=== PATIENT | male | born 1955 | race Caucasian/White ===

== ENCOUNTER 2017-11-29 08:05 | Outpatient (CLI) | payer OTHER ==
--- NOTE | 2017-11-29 15:41 | DEXA Report ---
DEXA SCAN: 11/29/2017 CLINICAL INDICATION: Osteoporosis. TECHNIQUE: Dual energy x-ray absorptiometry (DXA) was performed on a [employer] system. Regions measured are the AP spine, femoral neck, and, if needed, forearm. COMPARISON: None. In accordance with the International Society for Clinical Densitometry (ISCD) guidelines, data from previous exams may be reanalyzed using current recommendations and techniques. This is done to allow a more accurate basis for comparison with the current study. FINDINGS The data for the lumbar spine is as follows: REGION BMD (g/cm/cm) T-SCORE Z-SCORE L1 0.872 -2.4 -1.9 L2 0.910 -2.7 -2.3 L3 0.888 -2.9 -2.5 L4 0.753 -4.1 -3.6 L1-L4 0.851 -3.1 -2.6 NOTE: All evaluable vertebrae are used for classification. The data for the hip is as follows: REGION BMD (g/cm/cm) T-SCORE Z-SCORE Neck 0.929 -1.1 0.0 TOTAL 0.857 -1.7 -1.1 NOTE: The femoral neck or total proximal femur, whichever is lowest, is used for classification. IMPRESSION WHO CLASSIFICATION BASED ON THE INTERNATIONAL REFERENCE STANDARD IS OSTEOPOROSIS. FRACTURE RISK IS HIGH. RECOMMENDATION: Patients with diagnosis of osteoporosis or osteopenia should have regular bone mineral density assessment. For those eligible for Medicare, routine testing is allowed once every 2 years. Testing frequency can be increased for patients who have rapidly progressing disease or for those who are receiving medical therapy to restore bone mass. COMMENT World Health Organization (WHO) definitions for osteoporosis and osteopenia: NORMAL BMD: T-score at 1.0 or higher, fracture risk is low. OSTEOPENIA BMD: T-score between 1.0 and -2.5, fracture risk is increased. OSTEOPOROSIS BMD: T-score at 2.5 or lower, fracture risk high. National Osteoporosis Foundation recommends: 1. Obtain adequate dietary calcium (at least 1200 mg per day) and vitamin D (400 -800 international units per day). 2. Participate, as appropriate, in regular weightbearing and muscle- strengthening exercise. 3. Avoid tobacco use and reduce alcohol and caffeine intake. 4. For more detailed information see the website at www.NOF.org. TD: 11/29/2017 09:41 MTDSophie
== END 2017-11-29 08:06 | disposition home or self-care (01) ==
LOC: DI 08:05
PROVIDERS: ATTEND Internal Medicine
DX: M81.0 Age-related osteoporosis without current pathological fracture (principal)
CPT/HCPCS: 77080

== ENCOUNTER 2018-04-05 10:33 | Outpatient (CLI) | payer OTHER ==
--- NOTE | 2018-04-06 10:40 | XRAY Report ---
Reason: OTH SPECIFIC ARTHROPATHIES, NEC, MULTIPLE SITES Procedure Date: 04/05/2018 Accession Number: [id number] / [id number] Procedure: XR - Hand 3 View BILAT CPT Code: FULL RESULT: EXAMS: 1. RIGHT HAND RADIOGRAPHY 2. LEFT HAND RADIOGRAPHY EXAM DATE: 04/05/2018 10:41 AM. CLINICAL HISTORY: Patient presents with bilateral hand pain, primary to right hand. History of arthritis. COMPARISON: None. TECHNIQUE: 3 views each hand. FINDINGS: Right: Bones: Normal. No fractures or bone lesions. Joints: There is interphalangeal joint space narrowing which is most pronounced in the distal interphalangeal compartments. Soft Tissues: Normal. No soft tissue swelling. Left: Bones: Normal. No fractures or bone lesions. Joints: Interphalangeal joint space narrowing, greater in the distal interphalangeal joints and less severe as compared to the left. Soft Tissues: Normal. No soft tissue swelling. IMPRESSION: Right greater than left osteoarthrosis. RADIA
== END 2018-04-05 10:34 | disposition home or self-care (01) ==
LOC: DI 10:33
PROVIDERS: ATTEND Internal Medicine
DX: M19.042 Primary osteoarthritis, left hand (principal); M19.041 Primary osteoarthritis, right hand

== ENCOUNTER 2018-04-06 10:26 | Outpatient (CLI) | payer OTHER ==
[2018-04-06 11:17] LABS: HGB - HEMOGLOBIN 13.3 g/dL (14.0-18.0); MEAN CORPUSCULAR HEMOGLOBIN 31.6 pg (27.0-31.0); MEAN CORPUSCULAR HGB CONC 34.2 g/dL (32.0-36.0); MEAN CORPUSCULAR VOLUME 92.4 fL (80.0-94.0); MEAN PLATELET VOLUME 7.7 fL (7.4-11.4); RED BLOOD COUNT 4.22 10^6/uL (4.70-6.10); RED CELL DISTRIBUTION WIDTH 13.4 % (12.0-15.0)
[2018-04-06 11:27] LABS: CREATININE 0.7 mg/dL (0.6-1.2)
== END 2018-04-06 10:27 | disposition home or self-care (01) ==
LOC: LAB 10:26
PROVIDERS: ATTEND Internal Medicine
DX: I10 Essential (primary) hypertension (principal); Z79.899 Other long term (current) drug therapy; M12.89 Other specific arthropathies, not elsewhere classified, multiple sites
CPT/HCPCS: 36415; 80048; 85027; 85651

== ENCOUNTER 2018-05-10 11:40 | Outpatient (CLI) | payer OTHER | END 2018-05-10 11:41 | disposition home or self-care (01) | LOC: LAB 11:40 | PROVIDERS: ATTEND Internal Medicine | DX: I10 Essential (primary) hypertension (principal); Z79.899 Other long term (current) drug therapy; M12.89 Other specific arthropathies, not elsewhere classified, multiple sites | CPT/HCPCS: 36415; 80048; 85027; 85651 ==

== ENCOUNTER 2018-05-26 08:46 | Outpatient (CLI) | payer OTHER | END 2018-05-26 08:47 | disposition home or self-care (01) | LOC: LAB 08:46 | PROVIDERS: ATTEND Internal Medicine Endocrinology, Diabetes & Metabolism | DX: M81.0 Age-related osteoporosis without current pathological fracture (principal) | CPT/HCPCS: 36415; 81599; 82306; 83970 ==

== ENCOUNTER 2018-07-27 10:04 | Outpatient (CLI) | payer OTHER ==
[2018-07-27 10:28] LABS: BASOPHILS # (AUTO) 0.1 10^3/uL (0.0-0.1); EOSINOPHILS # (AUTO) 0.2 10^3/uL (0.0-0.7); EOSINOPHILS % (AUTO) 2.1 %; LYMPHOCYTES # (AUTO) 1.3 10^3/uL (1.5-3.5); LYMPHOCYTES % (AUTO) 17.6 %; MEAN CORPUSCULAR HGB CONC 34.5 g/dL (32.0-36.0); MEAN CORPUSCULAR VOLUME 92.7 fL (80.0-94.0); MEAN PLATELET VOLUME 7.8 fL (7.4-11.4); MONOCYTES # (AUTO) 0.6 10^3/uL (0.0-1.0); MONOCYTES % (AUTO) 8.3 %; NEUTROPHILS # (AUTO) 5.3 10^3/uL (1.5-6.6); PLT - PLATELET COUNT 211 10^3/uL (130-450); RED BLOOD COUNT 4.07 10^6/uL (4.70-6.10); RED CELL DISTRIBUTION WIDTH 13.6 % (12.0-15.0); WHITE BLOOD COUNT 7.5 x10^3/uL (4.8-10.8)
[2018-07-27 11:06] LABS: ALBUMIN/GLOBULIN RATIO 1.5 (1.0-2.2); BILIRUBIN,TOTAL 0.8 mg/dL (0.2-1.0); CALCIUM 9.4 mg/dL (8.5-10.3); CREATININE 0.7 mg/dL (0.6-1.2); TOTAL PROTEIN 6.7 g/dL (6.7-8.2)
[2018-07-28 13:21] LABS: % IRON SATURATION 25 % (20-50); IRON 71 ug/dL (45-182); TOTAL IRON BINDING CAPACITY 283 ug/dL (250-450); TRANSFERRIN 202 mg/dL (180-329)
== END 2018-07-27 10:05 | disposition home or self-care (01) ==
LOC: LAB 10:04
PROVIDERS: ATTEND Internal Medicine
DX: I10 Essential (primary) hypertension (principal); E78.00 Pure hypercholesterolemia, unspecified; Z79.899 Other long term (current) drug therapy
CPT/HCPCS: 36415; 80053; 82728; 83540; 84466; 85025

== ENCOUNTER 2018-09-07 16:33 | Outpatient (CLI) | payer OTHER ==
[2018-09-07 16:57] LABS: CALCIUM 9.7 mg/dL (8.5-10.3); CREATININE 0.9 mg/dL (0.6-1.2)
== END 2018-09-07 16:34 | disposition home or self-care (01) ==
LOC: LAB 16:33
PROVIDERS: ATTEND Internal Medicine Endocrinology, Diabetes & Metabolism
DX: M80.00XS Age-related osteoporosis with current pathological fracture, unspecified site, sequela (principal)
CPT/HCPCS: 36415; 80048

== ENCOUNTER 2018-10-02 09:43 | Outpatient (CLI) | payer OTHER ==
[2018-10-02 10:17] LABS: BASOPHILS # (AUTO) 0.1 10^3/uL (0.0-0.1); BASOPHILS % (AUTO) 1.2 %; EOSINOPHILS # (AUTO) 0.1 10^3/uL (0.0-0.7); EOSINOPHILS % (AUTO) 2.7 %; HGB - HEMOGLOBIN 12.4 g/dL (14.0-18.0); LYMPHOCYTES # (AUTO) 0.9 10^3/uL (1.5-3.5); LYMPHOCYTES % (AUTO) 18.1 %; MEAN CORPUSCULAR HEMOGLOBIN 31.7 pg (27.0-31.0); MEAN CORPUSCULAR HGB CONC 34.4 g/dL (32.0-36.0); MEAN PLATELET VOLUME 7.9 fL (7.4-11.4); MONOCYTES # (AUTO) 0.4 10^3/uL (0.0-1.0); MONOCYTES % (AUTO) 8.2 %; NEUTROPHILS # (AUTO) 3.6 10^3/uL (1.5-6.6); NEUTROPHILS % (AUTO) 69.8 %; PLT - PLATELET COUNT 212 10^3/uL (130-450); WHITE BLOOD COUNT 5.1 x10^3/uL (4.8-10.8)
[2018-10-02 10:31] LABS: ALBUMIN/GLOBULIN RATIO 1.6 (1.0-2.2); ALKALINE PHOSPHATASE 49 IU/L (42-121); ALT ALANINE AMINOTRANSFERASE 25 IU/L (10-60); AST ASPARTATE AMINOTRANSFERASE 26 IU/L (10-42); BILIRUBIN,TOTAL 1.2 mg/dL (0.2-1.0); BUN - BLOOD UREA NITROGEN 13 mg/dL (6-20); CALCIUM 8.9 mg/dL (8.5-10.3); CARBON DIOXIDE - CO2 27 mmol/L (21-32); CHLORIDE 101 mmol/L (101-111); CHOL/HDL RATIO 1.6 (<5.0); CHOLESTEROL 126 mg/dL; CREATININE 0.6 mg/dL (0.6-1.2); GFR - MDRD 136 (>89); GLUCOSE 103 mg/dL (70-100); HDL CHOLESTEROL 78 mg/dL; SODIUM 136 mmol/L (135-145); TOTAL PROTEIN 6.5 g/dL (6.7-8.2)
[2018-10-02 10:52] LABS: LDL CHOLESTEROL,DIRECT 45 mg/dL; LDLD/HDL RATIO 0.6 (<3.6)
[2018-10-02 11:06] LABS: PSA SCREEN (Z12.5) 1.1 ng/mL (0.000-2.000)
== END 2018-10-02 09:44 | disposition home or self-care (01) ==
LOC: LAB 09:43
PROVIDERS: ATTEND Internal Medicine
DX: M12.89 Other specific arthropathies, not elsewhere classified, multiple sites (principal); D47.2 Monoclonal gammopathy; I10 Essential (primary) hypertension; Z86.010 Personal history of colon polyps; M81.0 Age-related osteoporosis without current pathological fracture; E78.00 Pure hypercholesterolemia, unspecified; Z85.820 Personal history of malignant melanoma of skin
CPT/HCPCS: 36415; 80053; 80061; 83721; 84153; 84403; 85025

== ENCOUNTER 2019-02-02 | Outpatient (CLI) | payer OTHER | END 2019-02-02 08:47 | disposition home or self-care (01) ==

== ENCOUNTER 2019-08-07 08:35 | Outpatient (CLI) | payer OTHER ==
[2019-08-07 09:03] LABS: CALCIUM 8.9 mg/dL (8.5-10.3); CREATININE 0.7 mg/dL (0.6-1.2); PHOSPHORUS 2.8 mg/dL (2.5-4.6)
== END 2019-08-07 08:36 | disposition home or self-care (01) ==
LOC: LAB 08:35
PROVIDERS: ATTEND Internal Medicine Endocrinology, Diabetes & Metabolism
DX: M80.00XS Age-related osteoporosis with current pathological fracture, unspecified site, sequela (principal)
CPT/HCPCS: 36415; 80069

== ENCOUNTER 2020-02-29 07:56 | Outpatient (CLI) | payer OTHER ==
[2020-02-29 08:57] LABS: CHOL/HDL RATIO 1.9 (<5.0); CHOLESTEROL 136 mg/dL; HDL CHOLESTEROL 73 mg/dL; LDL CHOLESTEROL,CALCULATED 54 mg/dL; LDL/HDL RATIO 0.7 (<3.6); VLDL CHOLESTEROL 9 mg/dL
== END 2020-02-29 07:57 | disposition home or self-care (01) ==
LOC: LAB 07:56
PROVIDERS: ATTEND Internal Medicine
DX: E78.00 Pure hypercholesterolemia, unspecified (principal); R35.1 Nocturia
CPT/HCPCS: 36415; 80061; 83721; 84153

== ENCOUNTER 2020-07-18 08:20 | Outpatient (CLI) | payer MEDICARE, OTHER ==
--- NOTE | 2020-07-18 13:22 | DEXA Report ---
PROCEDURE: Dexa Spine and/or Hip INDICATIONS: OSTEOPOROSIS TECHNIQUE: Dual energy x-ray absorptiometry (DXA) was performed on a [employer] System. Regions measur ed are the AP Spine, femoral neck, and if needed forearm. COMPARISON: 11/29/2018. FINDINGS: Lumbar Spine: Bone Mineral Density 1.004 g/cm/cm,T score -1.8, osteopenia Left Hip: Bone Mineral Density 0.879 g/cm/cm,T score -1.5, osteopenia Left Femoral Neck: Bone Mineral Density 0.927 g/cm/cm, T score -1.1, osteopenia (T score greater or equal to -1.0: NORMAL) (T score from -1.1 to -2.4: OSTEOPENIA) (T score less than or equal to -2.5 to: OSTEOPOROSIS) Impression: Osteopenia. Bone marrow density increased 2.6% interval since prior exam. Patients with diagnosis of osteoporosis or osteopenia should have regular bone mineral density assess ment. For those eligible for Medicare, routine testing is allowed once every 2 years. Testing frequ ency can be increased for patients who have rapidly progressing disease or for those who are receivin g medical therapy to restore bone mass. Reviewed by: Monet Hudson MD, PhD on 07/18/2020 1:21 PM PST Approved by: Monet Hudson MD, PhD on 07/18/2020 1:21 PM PST Station ID: [id number]
== END 2020-07-18 08:21 | disposition home or self-care (01) ==
LOC: DI 08:20
PROVIDERS: ATTEND Internal Medicine
DX: M85.89 Other specified disorders of bone density and structure, multiple sites (principal)

== ENCOUNTER 2020-07-20 13:48 | Outpatient (CLI) | payer MEDICARE, OTHER ==
--- NOTE | 2020-07-20 14:26 | XRAY Report ---
PROCEDURE: Foot 3 View LT INDICATIONS: L FOOT PX TECHNIQUE: 3 views of the foot were acquired. COMPARISON: None FINDINGS: Bones: No acute fractures or dislocations. There is a remote appearing, healed fracture of the dista l fifth metatarsal shaft. No suspicious bony lesions. Age-appropriate degenerative changes are seen. Soft tissues: No tibiotalar joint effusion. Achilles tendon appears normal. Calcification can be s een of the distal arteries, which is commonly observed in patients with long-standing diabetes. Pleas e correlate with known patient history. IMPRESSION: Degenerative changes, without a cause of the pain identified. A remote, healed distal fifth metatarsal fracture can be seen. Reviewed by: Sadi Zamarripa MD on 07/20/2020 1:25 PM [facility] Approved by: Sadi Zamarripa MD on 07/20/2020 1:25 PM [facility] Station ID: [id number]
== END 2020-07-20 23:59 | disposition home or self-care (01) ==
LOC: DI.N 13:48
PROVIDERS: ATTEND Family Medicine
DX: M19.072 Primary osteoarthritis, left ankle and foot (principal)

== ENCOUNTER 2020-08-29 18:49 | Outpatient (CLI) | payer MEDICARE, OTHER | END 2020-08-29 18:50 | disposition left against medical advice (07) | LOC: EMS 18:49 | DX: R55 Syncope and collapse (principal); R03.1 Nonspecific low blood-pressure reading ==

== ENCOUNTER 2020-09-09 08:00 | Outpatient (CLI) | payer MEDICARE, OTHER ==
[2020-09-09 08:26] LABS: BASOPHILS # (AUTO) 0.1 10^3/uL (0.0-0.1); BASOPHILS % (AUTO) 0.9 %; EOSINOPHILS # (AUTO) 0.1 10^3/uL (0.0-0.7); EOSINOPHILS % (AUTO) 2.6 %; HCT - HEMATOCRIT 37.8 % (42.0-52.0); HGB - HEMOGLOBIN 12.9 g/dL (14.0-18.0); LYMPHOCYTES # (AUTO) 1.3 10^3/uL (1.5-3.5); MEAN CORPUSCULAR HEMOGLOBIN 32.2 pg (27.0-31.0); MEAN CORPUSCULAR HGB CONC 34.1 g/dL (32.0-36.0); MEAN CORPUSCULAR VOLUME 94.3 fL (80.0-94.0); MEAN PLATELET VOLUME 8.9 fL (7.4-11.4); MONOCYTES # (AUTO) 0.4 10^3/uL (0.0-1.0); MONOCYTES % (AUTO) 6.5 %; NEUTROPHILS # (AUTO) 3.5 10^3/uL (1.5-6.6); NEUTROPHILS % (AUTO) 64.6 %; PLT - PLATELET COUNT 178 10^3/uL (130-450); RED BLOOD COUNT 4.01 10^6/uL (4.70-6.10); RED CELL DISTRIBUTION WIDTH 13.3 % (12.0-15.0); WHITE BLOOD COUNT 5.4 x10^3/uL (4.8-10.8)
[2020-09-09 10:58] LABS: ALBUMIN 3.7 g/dL (3.2-5.5); ALBUMIN/GLOBULIN RATIO 1.6 (1.0-2.2); ALKALINE PHOSPHATASE 53 IU/L (42-121); ALT ALANINE AMINOTRANSFERASE 24 IU/L (10-60); AST ASPARTATE AMINOTRANSFERASE 24 IU/L (10-42); BUN - BLOOD UREA NITROGEN 12 mg/dL (6-20); CALCIUM 8.8 mg/dL (8.5-10.3); CARBON DIOXIDE - CO2 27 mmol/L (21-32); CHLORIDE 103 mmol/L (101-111); CHOL/HDL RATIO 2.2 (<5.0); CHOLESTEROL 146 mg/dL; CREATININE 0.6 mg/dL (0.6-1.2); GFR - MDRD 135 (>89); GLUCOSE 94 mg/dL (70-100); HDL CHOLESTEROL 66 mg/dL; LDL CHOLESTEROL,CALCULATED 67 mg/dL; POTASSIUM 3.8 mmol/L (3.5-5.0); SODIUM 138 mmol/L (135-145); TRIGLYCERIDES 64 mg/dL; VLDL CHOLESTEROL 13 mg/dL
== END 2020-09-09 08:01 | disposition home or self-care (01) ==
LOC: LAB 08:00
PROVIDERS: ATTEND Internal Medicine
DX: E78.00 Pure hypercholesterolemia, unspecified (principal); Z79.899 Other long term (current) drug therapy; E78.6 Lipoprotein deficiency; F32.9 Major depressive disorder, single episode, unspecified; M12.89 Other specific arthropathies, not elsewhere classified, multiple sites; Z12.5 Encounter for screening for malignant neoplasm of prostate
CPT/HCPCS: 36415; 80053; 80061; 84443; 85025; 85651; G0103; 83721; 84153

== ENCOUNTER 2021-02-19 07:50 | Outpatient (CLI) | payer MEDICARE, OTHER ==
[2021-02-19 08:20] LABS: CALCIUM 9.1 mg/dL (8.5-10.3); CREATININE 0.7 mg/dL (0.6-1.2); POTASSIUM 3.9 mmol/L (3.5-5.0)
== END 2021-02-19 07:51 | disposition home or self-care (01) ==
LOC: LAB 07:50
PROVIDERS: ATTEND Internal Medicine
DX: E78.00 Pure hypercholesterolemia, unspecified (principal); I10 Essential (primary) hypertension; E87.6 Hypokalemia; Z79.899 Other long term (current) drug therapy
CPT/HCPCS: 36415; 80048

== ENCOUNTER 2021-09-24 07:53 | Outpatient (CLI) | payer MEDICARE, OTHER ==
[2021-09-24 08:39] LABS: ALBUMIN 3.7 g/dL (3.2-5.5); BILIRUBIN,DIRECT 0.2 mg/dL (0.1-0.5); BILIRUBIN,TOTAL 0.7 mg/dL (0.2-1.0); CALCIUM 8.6 mg/dL (8.5-10.3); CREATININE 0.8 mg/dL (0.6-1.2); POTASSIUM 4.1 mmol/L (3.5-5.0); TOTAL PROTEIN 6.1 g/dL (6.7-8.2)
[2021-09-24 12:50] LABS: ESTIMATED AVERAGE GLUCOSE 126 mg/dL (70-100)
== END 2021-09-24 07:54 | disposition home or self-care (01) ==
LOC: LAB 07:53
PROVIDERS: ATTEND Internal Medicine
DX: I10 Essential (primary) hypertension (principal); E78.00 Pure hypercholesterolemia, unspecified; E87.6 Hypokalemia; F32.9 Major depressive disorder, single episode, unspecified
CPT/HCPCS: 36415; 80048; 80076; 83036

== ENCOUNTER 2022-04-14 08:25 | Outpatient (CLI) | payer MEDICARE, OTHER | END 2022-04-14 08:26 | disposition home or self-care (01) | LOC: LAB 08:25 | PROVIDERS: ATTEND Internal Medicine Endocrinology, Diabetes & Metabolism | DX: M81.0 Age-related osteoporosis without current pathological fracture (principal) | CPT/HCPCS: 36415; 82306 ==

== ENCOUNTER 2022-06-02 07:47 | Outpatient (CLI) | payer MEDICARE, OTHER ==
[2022-06-02 09:29] LABS: CHOLESTEROL 146 mg/dL; HDL CHOLESTEROL 74 mg/dL; LDL CHOLESTEROL,CALCULATED 63 mg/dL; LDL/HDL RATIO 0.9 (<3.6); TRIGLYCERIDES 44 mg/dL; VLDL CHOLESTEROL 9 mg/dL
== END 2022-06-02 07:48 | disposition home or self-care (01) ==
LOC: LAB 07:47
PROVIDERS: ATTEND Internal Medicine
DX: E78.00 Pure hypercholesterolemia, unspecified (principal); Z12.5 Encounter for screening for malignant neoplasm of prostate
CPT/HCPCS: 36415; 80061; G0103; 83721; 84153

== ENCOUNTER 2022-09-27 08:20 | Outpatient (CLI) | payer MEDICARE, OTHER ==
--- NOTE | 2022-09-27 13:45 | DEXA Report ---
PROCEDURE: Dexa Spine and/or Hip INDICATIONS: OSTEOPOROSIS TECHNIQUE: Dual energy x-ray absorptiometry (DXA) was performed on a [employer] System. Regions measur ed are the AP Spine, both femoral neck, and if needed forearm. COMPARISON: 07/18/2020, 11/29/2017 FINDINGS: Lumbar Spine: Bone Mineral Density 0.998 g/cm/cm,T score -1.9, no statistical change from prior. Left Femoral Neck: Bone Mineral Density 0.948 g/cm/cm, T score -0.9. Left Hip: Bone Mineral Density 0.905 g/cm/cm,T score -1.4. Right Femoral Neck: Bone Mineral Density 0.979 g/cm/cm, T score -0.7. Right Hip: Bone Mineral Density 0.883 g/cm/cm,T score -1.5. Left forearm: Bone Mineral Density 0.604 g/cm/cm, T score -2.1. (T score greater or equal to -1.0: NORMAL) (T score from -1.1 to -2.4: OSTEOPENIA) (T score less than or equal to -2.5 to: OSTEOPOROSIS) Impression: Osteopenia. Patients with diagnosis of osteoporosis or osteopenia should have regular bone mineral density assess ment. For those eligible for Medicare, routine testing is allowed once every 2 years. Testing frequ ency can be increased for patients who have rapidly progressing disease or for those who are receivin g medical therapy to restore bone mass. Reviewed by: Tom Flowers on 09/27/2022 9:52 AM PDT Approved by: Tom Flowers on 09/27/2022 9:52 AM PDT Station ID: [id number]
== END 2022-09-27 08:21 | disposition home or self-care (01) ==
LOC: DI 08:20
PROVIDERS: ATTEND Internal Medicine Endocrinology, Diabetes & Metabolism
DX: M85.80 Other specified disorders of bone density and structure, unspecified site (principal)

== ENCOUNTER 2023-07-08 07:41 | Outpatient (CLI) | payer MEDICARE, OTHER ==
--- NOTE | 2023-07-08 14:32 | Ultrasound Report ---
PROCEDURE: Aorta Screening INDICATIONS: ESSENTIAL (PRIMARY) HYPERTENSION TECHNIQUE: Real time scanning was performed of the aorta and iliac arteries, with image documentatio n. COMPARISON: None. FINDINGS: Aorta: Proximal aortic diameter measures 2.1 x 2.1 cm. Mid-aorta measures 1.8 x 1.9 cm. Distal aor tic diameter is 1.4 x 1.6 cm. Iliac arteries: Right common iliac artery measures 1.4 x 1.4 cm. Left common iliac artery measures 1.5 x 1.5 cm. IMPRESSION: No aneurysmal dilation. Reviewed by: Neela Caba MD on 07/08/2023 2:31 PM PST Approved by: Neela Caba MD on 07/08/2023 2:31 PM PST Station ID: [id number]
== END 2023-07-08 07:42 | disposition home or self-care (01) ==
LOC: DI 07:41
PROVIDERS: ATTEND Internal Medicine
DX: I10 Essential (primary) hypertension (principal)

== ENCOUNTER 2024-03-29 10:49 | Outpatient (CLI) | payer MEDICARE, OTHER | END 2024-03-29 10:50 | disposition home or self-care (01) | LOC: LAB 10:49 | PROVIDERS: ATTEND Urology | DX: Z12.5 Encounter for screening for malignant neoplasm of prostate (principal) | CPT/HCPCS: 36415; G0103; 84153 ==